=== PATIENT | male | born 1940 | race Caucasian/White ===

== ENCOUNTER 2016-08-17 10:38 | Inpatient (IN) | payer OTHER, MEDICARE ==
[~2016-08-17] VITALS: Ht 175.3 cm; Wt 91.7 kg
[2016-08-17] MEDS ORDERED: GABA300C5 PO (16:02)
[2016-08-17] MEDS ORDERED: ADVA250A INH (16:02)
[2016-08-17] MEDS ORDERED: OMEP20TA PO (16:02)
[2016-08-17] MEDS ORDERED: METO25TA3 PO ×2 (16:02)
[2016-08-18] MEDS ORDERED: ceFAZolin 2 GM PREMIX 50 ML IV SCH (10:15)
[2016-08-18] MEDS ORDERED: VANCOMYCIN 1000 MG/NS 250 ML (for <70 kg) IV SCH ×2 (10:15)
[2016-08-18] MEDS: POVIDONE IODINE 7.5% SCRUB 118 ML BOTTLE TOPICAL SCH (10:15)
[2016-08-18 10:27] VITALS: BP 153/77; PULSE 57; RESP 20; TEMP 97.2; O2SAT 96
[2016-08-18] MEDS ORDERED: INSULIN HUMAN REGULAR 1,000 UNITS/10 ML VIAL SQ PRN (10:45)
[2016-08-18] MEDS ORDERED: METOPROLOL TARTRATE 25 MG TAB PO PRN (10:45)
[2016-08-18] MEDS ORDERED: POVIDONE IODINE 5% (ANTISEPSIS KIT) 4 APPLICATIONS EACH NARE PRN (10:45)
[2016-08-18] MEDS ORDERED: LACTATED RINGER'S 1000 ML IV PRN (10:45)
[2016-08-18] MEDS ORDERED: SODIUM CHLORID 0.9% 500 ML IV PRN (10:45)
[2016-08-18] MEDS ORDERED: CHLORHEXIDINE GLUCONATE 2 % 1 PACK (2 CLOTHS) TOPICAL PRN (10:45)
[2016-08-18] MEDS ORDERED: ePHEDrine/NS 25 MG/5 ML SYR IV ONE (11:34)
[2016-08-18] MEDS ORDERED: PROPOFOL 200 MG/20 ML AMP IV ONE (11:34)
[2016-08-18] MEDS ORDERED: NEOSTIGMINE 3 MG/3 ML SYR IV ONE (11:34)
[2016-08-18] MEDS ORDERED: LACTATED RINGER'S 1000 ML INJ 1,000 ML IV ONE (11:35)
[2016-08-18] MEDS ORDERED: ONDANSETRON HCL 4 MG/2 ML VIAL IV PUSH ONE (11:35)
[2016-08-18] MEDS ORDERED: DEXAMETHASONE SOD PHOS 4 MG/ML VIAL ONE (13:39)
[2016-08-18] MEDS ORDERED: MIDAZOLAM HCL 2 MG/2 ML VIAL ONE (13:39)
[2016-08-18] MEDS ORDERED: fentaNYL CITRATE 250 MCG/5 ML AMP ONE ×2 (13:57→20:43)
[2016-08-18] MEDS ORDERED: ACETAMINOPHEN 1000 MG/100 ML VIAL IV ONE (13:57)
[2016-08-18] MEDS ORDERED: GENTAMICIN SULFATE 80 MG/2 ML VIAL ONE (14:08)
[2016-08-18] MEDS ORDERED: BUPIVACAINE/EPINEPHRINE 0.5% 50 ML VIAL ONE (15:12)
[2016-08-18] MEDS ORDERED: MISC-163 (17:05)
[2016-08-18] MEDS ORDERED: WALKER WHEELS/F1 MIS (17:05)
[2016-08-18] MEDS ORDERED: ceFAZolin INJ 1,000 MG VIAL IV ONE (17:57)
[2016-08-18] MEDS ORDERED: ONDANSETRON HCL 4 MG/2 ML VIAL IV PRN (20:00)
[2016-08-18] MEDS ORDERED: SOD PHOSPHATE/SOD BIPHOSPHATE (ADULT) ENEMA 133ML PR PRN (20:00)
[2016-08-18] MEDS ORDERED: ACETAMINOPHEN/HYDROcodone 325 MG/7.5 MG TAB PO PRN (20:00)
[2016-08-18] MEDS ORDERED: ALUMINUM/MAGNESIUM/SIMETH 30 ML CUP PO PRN (20:00)
[2016-08-18] MEDS ORDERED: BISACODYL 10 MG SUPP RECTAL PRN (20:00)
[2016-08-18] MEDS ORDERED: SODIUM CHLORIDE 0.9% FLUSH 5 ML FLUSH IVF PRN (20:00)
[2016-08-18] MEDS ORDERED: Post-op Orders (for Pharmacy) MISC XX ONE (20:00)
[2016-08-18] MEDS ORDERED: MORPHINE SULFATE 8 MG/ML INJ IV PUSH PRN (20:00)
[2016-08-18] MEDS ORDERED: NALOXONE HCL 0.4 MG/ML AMP IV PRN (20:00)
--- NOTE | 2016-08-18 20:02 | PD.OP ---
cc: Natanael Polk MD Operative Report Date of Surgery: Aug 18, 2016 Preoperative Diagnosis: Lumbar spinal stenosis L2 to 3, L3 4, L4 5. Spondylolisthesis, L4 5. Foraminal stenosis left L2-3, moderate to severe. Foraminal stenosis right L3 4, moderate to severe. Bilateral foraminal stenosis L4 5, right greater than left. Right greater than left lumbosacral radiculopathy. Postoperative Diagnosis: Same Procedure: Bilateral lumbar laminectomy L2, L3 from the left with subtotal facet resection and foraminal decompression. Bilateral lumbar laminectomy from the right L3, L4 with bilateral lateral recess decompression and subtotal facet resection right L3 4. A lateral lumbar laminectomy L4, L5 with bilateral lateral recess decompression and subtotal right second decompression. Posterior spinal fusion, lateral transverse process technique, L2 to L5. Posterior spinal segmental instrumentation, L2 to L5. Posterior lateral interbody fusion L2-3 from the left L3 4 from the right L4 5 from the right. Placement of interbody cages L2-3, L3 4, L4 5. Major bone grafting of the lumbar spine Anesthesia: Gen. Surgeon: Natanael Polk Setter Out(s): KASSY Flowers Operation and Findings: EBL: 400 ml NOTE: Rachel Flowers PA-C was present for the entire surgical procedure as my airline pilot/first officer. In my medical opinion her skill and care was necessary for proper management of this patient INDICATIONS: This patient is a 76-year-old male whose had a many year history of treatment for back hip and leg pain studies show evidence of grade 1 spondylolisthesis at L4 5 and evidence of severe foraminal stenosis associated with a scoliotic curvature to the left at the L3 4 level and the right at the L2 -3 level. The patient has had exhaustive care including epidural steroid injections multiple times, physical therapy, altered activities, nonsteroidal and temperature medications and activity modification. The patient is now debilitated or he can ambulate only a very limited distance. He presents for surgical treatment INSTRUMENTATION: Screws: Solco Cages: Staxx PROCEDURE: The patient brought to the operating room and anesthetized the supine position. The patient positioned prone on the Jose Maria frame on the Negro table. All pressure points are protected. The back was scrubbed with alcohol followed by Hibiclens followed by ChloraPrep and draped sterilely and antibiotics were given within a routine time window. A timeout was done. Lateral radiographic images used to identify the proper level for the procedure. Compared care for the preoperative studies. Skin markings were made anticipating surgical treatment. A midline incision was made. We exposed out to the tips of the transverse processes from L2 to L5. Deep retractors allowed good visualization. The lateral transverse process of both levels were decorticated anticipating later bone grafting. We started under the microscope at the L2-3 level. We did a bilateral laminectomy of L2-3 with a left-sided subtotal facet resection. A high-grade foraminal stenosis was found. Very carefully the crossing L3 nerve root was retracted. An annulotomy was performed. A total discectomy was accomplished. A combination of autogenous bone graft with demineralized bone matrix and stem cells was injected into the disc space at that level. A proper size cage was positioned and elevated to 10 mm. Additional bone grafting was placed into the disc space. The attention directed L3 4 and L4 5. A bilateral midline laminectomy of both levels was accomplished with a bilateral lateral recess decompression. There was a high-grade stenosis especially at L4 5 and moderate to high-grade at L3 4. A subtotal facet resection to the right at L3 4 and L4 5 were accomplished. At each level, the crossing nerve root was retracted carefully. Hemostasis was controlled with the bipolar cautery. The annulus was taken down in a total discectomy accomplished. At the L3 4 level we placed a cage eccentric to the right to help correct the deformity of the scoliosis. This was elevated properly. At the L4 5 level and a similar fashion. Able to help correct the deformity and reduce the spondylolisthesis. Bone graft was placed at both levels. Fluoroscopic images were used for placement of screws at L2 L3 L4 and L5. A sequence of a high-speed bur followed by a blunt awl placed through the pedicle and into the vertebral body from both sides at each level. Each screw was charged with an electric current and there were no abnormal potentials registered in either lower extremity. The screws were then attached a proper length tulio and rotated to help correct the deformity. Intraoperative x-ray showed satisfactory alignment. The wound had been irrigated multiple times. There was no comp location and no leak of cerebral spinal fluid. Bone graft placed lateral gutters from L2 to L5. The wound was closed over drain with interrupted #1 Vicryl suture. Subcutaneous tissue with 2-0 Vicryl suture and skin with running intradermal 3- 0 Vicryl followed by benzoin and Steri-Strips. The patient was awakened and taken to recovery room in satisfactory condition. FINDINGS: There was no complication that was noted. There was severe stenosis at the above levels as described. Significant instability was seen at the L4 5 level. The spondylolisthesis at that level was reduced. The deformity was corrected significantly. Overall she is a very satisfactory decompression and instrumentation. Natanael Polk MD Aug 18, 2016 20:02
[2016-08-18] MEDS ORDERED: HYDR-3580 PO (20:03)
[2016-08-18] MEDS ORDERED: DO NOT ADM ANY ANTICOAGULANT DRUGS PRN (20:30)
[2016-08-18 20:45] VITALS: BP 137/75; PULSE 57; RESP 18; TEMP 97.8; O2SAT 94
[2016-08-18] MEDS ORDERED: ZOLPIDEM TARTRATE 5 MG TAB PO PRN (21:00)
[2016-08-18] MEDS ORDERED: PILL SPLITTER OTHER PRN (21:00)
[2016-08-18] MEDS: LACTATED RINGER'S 1000 ML INJ 1,000 ML IV SCH (21:00)
[2016-08-18] MEDS: SODIUM CHLORIDE 0.9% FLUSH 5 ML FLUSH IVF SCH (21:00)
[2016-08-18] MEDS: METOPROLOL TARTRATE 25 MG TAB PO SCH (21:00)
[2016-08-18] MEDS: MORPHINE SULFATE 30 MG/30 ML PCA IV SCH (21:18)
[2016-08-18 21:30] VITALS: BP 140/75; PULSE 52; RESP 14; O2SAT 93
--- NOTE | 2016-08-18 21:39 | RADRPT ---
EXAM DATE/TIME: 08/18/2016 19:28 [facility] COMPARISON: No previous studies available for comparison. INDICATIONS : Lumbar spine fusion. MEDICAL HISTORY : Non-responsive SURGICAL HISTORY : Non-responsive ENCOUNTER: Initial ACUITY: 1 day PAIN SCORE: Non-responsive. LOCATION: Bilateral lumbar spine FINDINGS: Multiple coned down views of the lumbar spine were obtained and demonstrate that the patient status p ost multilevel fusion with bilateral pedicle screws and posterior fixation rods. Superior to be the L 1-L4 levels. There is bone graft material in the interspaces with metallic markers. CONCLUSION: Status post multilevel fusion. Ashish Hansen MD on August 18, 2016 at 21:36 Board Certified Radiologist. This report was verified electronically.
[2016-08-18] MEDS: PCA - TOTAL MG MORPHINE DELIVERED PER SHIFT SCH (22:00)
[2016-08-18 22:15] VITALS: BP 121/69; PULSE 53; RESP 19; TEMP 95.2; O2SAT 94
[2016-08-19] VITALS (7 sets, daily range): BP systolic 103–133; BP diastolic 49–64; PULSE 58–89; RESP 16–20; TEMP 96–98.8; O2SAT 95–99
[2016-08-19] MEDS: PCA - TOTAL MG MORPHINE DELIVERED PER SHIFT SCH ×3 (06:00→22:00)
--- NOTE | 2016-08-19 07:54 | PD.ORT.PN ---
Subjective Subjective Remarks Low back very sore. Laying on side helps a little. Right leg pain better but still aches in the thigh. No new radiating leg pain. Was able to get some rest off and on last night. No Cp, SOB, or abd pain. Questions about surgery. Objective Vitals Vital Signs Date Time Temp Pulse Resp B/P Pulse Ox O2 Delivery O2 Flow Rate FiO2 08/19/16 06:00 16 08/19/16 04:29 96.6 68 19 118/64 97 08/19/16 00:06 96.0 58 19 103/49 96 08/18/16 22:15 95.2 53 19 121/69 94 08/18/16 22:00 18 08/18/16 21:30 52 14 140/75 93 08/18/16 21:18 16 08/18/16 20:45 97.8 57 18 137/75 94 08/18/16 20:30 97.6 69 12 162/76 96 Nasal Cannula 3 08/18/16 10:27 97.2 57 20 153/77 96 I/O 08/18/16 08/18/16 08/18/16 08/19/16 08/19/16 08/19/16 07:00 15:00 23:00 07:00 15:00 23:00 Intake Total 1720 ml 739 ml Output Total 1050 ml 660 ml Balance 670 ml 79 ml Intake Oral 120 ml 240 ml IV Total 499 ml Other 1600 ml Output Urine Total 200 ml 300 ml Drainage Total 360 ml Estimated Blood Loss 400 ml Other 450 ml # Bowel Movements 0 0 Objective Remarks Laying in bed, NAD VSS L/S Dressing in place, mild drainage, drain in place, no erythema both calves supple, neg homans +motor at, +sens, +nvi Assessment & Plan Ortho Post Op Day #: 1 Problem List: Assessment and Plan pod#1 s/p L/S Fusion L2-L5 D/C WINDER HAND - change to po pain meds. Ok to d/c lumbar drain. PT - OOB w brace. WBAT w walker as needed. Dry dressing changes daily beginning pod#2. D/C planning, likely HHC tomorrow vs wednesday. DME written. Nicolle Blandon Aug 19, 2016 07:54
[2016-08-19 08:12] LABS: HEMATOCRIT 30.5 % (39.0-51.0); REVIEW FLAG FINAL
[2016-08-19] MEDS: SODIUM CHLORIDE 0.9% FLUSH 5 ML FLUSH IVF SCH ×2 (08:51→21:00)
[2016-08-19] MEDS: POVIDONE IODINE 7.5% SCRUB 118 ML BOTTLE TOPICAL SCH (08:55)
[2016-08-19] MEDS: PANTOPRAZOLE SOD 20 MG DELAYED RELEASE TAB PO SCH (08:58)
[2016-08-19] MEDS: METOPROLOL TARTRATE 25 MG TAB PO SCH ×2 (08:58→22:43)
[2016-08-19] MEDS: BUDESONIDE-FORMOTEROL 160/4.5 MCG INHALER INH SCH ×2 (08:58→22:42)
--- NOTE | 2016-08-19 10:08 | HHI.FF ---
Face to Face Verification Diagnosis: (1) Lumbar spinal stenosis (2) Lumbar spine instability Physical Therapy Gait training, Safety evaluation, Transfer training, bed to chair S/P Spinal Fusion: Gait training with walker, Weight bearing as tolerated, No twisting of torso, No bending Additional Instructions PT 4-5 days/wk for 2 weeks. WBAT with brace night time nanny. Walker as needed for gait training. Nursing RN Days per Week: 5 x Week(s): 1 Dressing Changes: Daily dressing change, 4x4s, Coverderm/Primapore Additional Instructions Vitals assessment, dressing assessment - dry dressing changes daily w 4x4 and coverderm I have seen patient Peter Matamoros on 08/19/16. My clinical findings support the need for the requested home health care services because: Limited ability to care for self High risk of falls I certify that my clinical findings support that this patient is homebound because: Post-op weakness Unsteady gait/balance Nicolle Blandon Aug 19, 2016 10:08
--- NOTE | 2016-08-19 10:09 | HHI.DCPOC ---
Discharge Care Plan Diagnosis: (1) Lumbar spinal stenosis (2) Lumbar spine instability Your Health Problems Are: Incision/Drains Swelling Goals to Promote Your Health * To prevent worsening of your condition and complications * To maintain your health at the optimal level Directions to Meet Your Goals Take your medications as prescribed Follow your dietary instruction Follow activity as directed Keep your appointments as scheduled Take your immunizations and boosters as scheduled If your symptoms worsen call your PCP, if no PCP go to Urgent Care Center or Emergency Room Smoking is Dangerous to Your Health. Avoid second hand smoke Call the 24-hour hour crisis hotline for domestic abuse at Nicolle Blandon Aug 19, 2016 10:09
--- NOTE | 2016-08-19 10:10 | HHI.DS ---
Discharge Summary Admission Date Aug 18, 2016 at 09:27 Discharge Date: Aug 21, 2016 Admitting Diagnosis see below Diagnosis: (1) Lumbar spinal stenosis Diagnosis: Principal (2) Lumbar spine instability Diagnosis: Principal Procedures Bilateral Laminectomy L23, L34, L45. Posterior lumbar fusion L2-L5, interbody cages, posterior segmental instrumentation, bone graft. Brief History This is a 76 year old male patient with a history of low back and bilateral leg pain, right greater than left. He sought out medical treatment and imaging studies were performed. He was found to have moderate to severe stenosis at several levels in his lumbar spine. Conservative measures were pursued but his strength and neurologic function continued to decline. Surgical treatment was eventually recommended and he elected to move forward. He presents for the above treatment. CBC/BMP: 08/19/16 0730 Significant Findings Laboratory Tests Test 08/19/16 07:30 Hemoglobin 10.4 GM/DL (13.0-17.0) Hematocrit 30.5 % (39.0-51.0) PE at Discharge Laying in bed, NAD VSS L/S Dressing in place, mild drainage, drain in place, no erythema both calves supple, neg homans +motor at, +sens, +nvi Hospital Course Surgical treatment was performed on the day of admission without complication. He recovered well in PACU and was transferred to the orthopaedic floor. Pain was controlled with IV and oral medications. He was compliant with physical therapy restrictions and his lumbar brace. After 3 days he was found to be stable and discharged home with home health care. He was instructed to continue his lumbar brace for an additional 10-12 weeks and to pursue a high fiber diet for the next 5 days. Pt Condition on Discharge: Stable Discharge Disposition: Disch w/ Home Health Serv Discharge Instructions Diet Instructions: As Tolerated, No Restrictions, High Fiber Diet Activities You Can Perform: Weight Bearing as Nisreen, See Additionl Instruction Additional Activity Instruc.: Out of bed with brace for 10 -12 weeks. New Medications: 3-in-1 Bedside Toilet (3-in-1 Bedside Toilet) 1 Mis Mis 1 EA .ROUTE DIRECTED #1 EA Walker with Front Wheels (Walker with Front Wheels) 1 Mis Mis 1 EA .ROUTE DIRECTED #1 Ref 0 EA Hydrocodone-Acetaminophen (Hydrocodone-Acetaminophen) 7.5-325 mg Tab 1 TAB PO Q4H PRN PAIN SCALE 1 TO 5 #50 TAB Continued Medications: Fluticasone-Salmeterol Inh (Advair Diskus Inh) 250-50 Mcg/Blist Aer 1 PUFF INH BID Rinse mouth after use. #1 Ref 0 INHALER Gabapentin (Gabapentin) 300 Mg Cap 300 MG PO EVERY OTHER DAY #30 Ref 0 CAP Metoprolol Tartrate (Metoprolol Tartrate) 25 Mg Tab 25 MG PO DAILY #30 Ref 0 TAB Metoprolol Tartrate (Metoprolol Tartrate) 25 Mg Tab 12.5 MG PO HS #30 Ref 0 TAB Omeprazole (Omeprazole) 20 Mg Tab 20 MG PO DAILY #30 Ref 0 TAB Nicolle Blandon Aug 19, 2016 10:10
[2016-08-19] MEDS: LACTATED RINGER'S 1000 ML INJ 1,000 ML IV SCH ×2 (13:41→22:46)
[2016-08-19] MEDS: MORPHINE SULFATE 30 MG/30 ML PCA IV SCH (19:01)
[2016-08-19] MEDS: DOCUSATE SODIUM 100 MG CAP PO SCH (22:42)
[2016-08-20 00:30] VITALS: BP 156/69; PULSE 86; RESP 20; TEMP 98.9; O2SAT 95
[2016-08-20 04:19] VITALS: BP 158/61; PULSE 84; RESP 20; TEMP 99.5; O2SAT 93
[2016-08-20] MEDS: PCA - TOTAL MG MORPHINE DELIVERED PER SHIFT SCH ×3 (05:52→21:30)
[2016-08-20 08:00] VITALS: BP 131/63; PULSE 91; RESP 18; TEMP 99.2; O2SAT 96
--- NOTE | 2016-08-20 08:03 | PD.ORT.PN ---
Subjective Subjective Remarks Doing well. Back pain. No leg pain Objective Vitals Vital Signs Date Time Temp Pulse Resp B/P Pulse Ox O2 Delivery O2 Flow Rate FiO2 08/20/16 05:52 19 08/20/16 04:19 99.5 84 20 158/61 93 08/20/16 00:30 98.9 86 20 156/69 95 08/19/16 22:53 Room Air 08/19/16 22:00 18 08/19/16 20:12 98.8 84 20 131/61 99 08/19/16 19:04 Nasal Cannula 2.00 08/19/16 19:01 16 08/19/16 18:38 Nasal Cannula 3.00 08/19/16 16:00 98.8 74 16 129/60 99 08/19/16 14:26 98 Nasal Cannula 3.00 08/19/16 13:42 16 08/19/16 12:00 96.3 64 16 133/62 99 I/O 08/19/16 08/19/16 08/19/16 08/20/16 08/20/16 08/20/16 07:00 15:00 23:00 07:00 15:00 23:00 Intake Total 739 ml 964 ml 1365 ml 1077 ml Output Total 660 ml 250 ml 650 ml 950 ml Balance 79 ml 714 ml 715 ml 127 ml Intake Oral 240 ml 500 ml 840 ml 720 ml IV Total 499 ml 464 ml 525 ml 357 ml Output Urine Total 300 ml 250 ml 650 ml 950 ml Drainage Total 360 ml # Bowel Movements 0 0 0 0 Result Diagram: 08/19/16 0730 Procedures Bilateral Laminectomy L23, L34, L45. Posterior lumbar fusion L2-L5, interbody cages, posterior segmental instrumentation, bone graft. Objective Remarks Laying in bed. Lumbar incision dry. Lower extremity: Straight-leg raise negative. Motor examination vital 5 right leg. Left leg left EHL 4+/5. Sensation almost normal Assessment & Plan Ortho Post Op Day #: 2 Problem List: (1) Lumbar spinal stenosis (2) Lumbar spine instability Assessment and Plan pod#2 s/p L/S Fusion L2-L5 PLAN: Discharge to home Brace when out of bed [facility] for pain Follow-up in 2 weeks Natanael Polk MD Aug 20, 2016 08:03
[2016-08-20] MEDS: SODIUM CHLORIDE 0.9% FLUSH 5 ML FLUSH IVF SCH ×2 (09:00→21:00)
[2016-08-20] MEDS ORDERED: GABAPENTIN 300 MG CAP PO SCH (09:00)
[2016-08-20] MEDS: DOCUSATE SODIUM 100 MG CAP PO SCH ×2 (09:04→20:27)
[2016-08-20] MEDS: PANTOPRAZOLE SOD 20 MG DELAYED RELEASE TAB PO SCH (09:05)
[2016-08-20] MEDS: METOPROLOL TARTRATE 25 MG TAB PO SCH ×2 (09:05→20:29)
[2016-08-20] MEDS: BUDESONIDE-FORMOTEROL 160/4.5 MCG INHALER INH SCH ×2 (09:06→20:32)
[2016-08-20] MEDS: ACETAMINOPHEN/HYDROcodone 325 MG/7.5 MG TAB PO PRN ×2 (09:10→18:24)
[2016-08-20] MEDS: POVIDONE IODINE 7.5% SCRUB 118 ML BOTTLE TOPICAL SCH (10:15)
[2016-08-20] MEDS: LACTATED RINGER'S 1000 ML INJ 1,000 ML IV SCH ×2 (10:30→21:30)
[2016-08-20 11:58] VITALS: BP 108/64; PULSE 69; RESP 16; TEMP 97.6; O2SAT 91
[2016-08-20 16:00] VITALS: BP 135/59; PULSE 75; RESP 18; TEMP 97.3; O2SAT 94
[2016-08-20 20:00] VITALS: BP 130/69; PULSE 82; RESP 18; TEMP 98.5; O2SAT 95
[2016-08-20] MEDS: MAGNESIUM HYDROXIDE SUSP 30 ML CUP PO SCH (20:30)
[2016-08-21] VITALS: BP 118/62; PULSE 75; RESP 18; TEMP 98.7; O2SAT 95
[2016-08-21] MEDS: PCA - TOTAL MG MORPHINE DELIVERED PER SHIFT SCH ×2 (05:46→14:00)
[2016-08-21 08:00] VITALS: BP 101/45; PULSE 75; RESP 16; TEMP 98.1; O2SAT 94
[2016-08-21] MEDS: METOPROLOL TARTRATE 25 MG TAB PO SCH (09:00)
[2016-08-21] MEDS: SODIUM CHLORIDE 0.9% FLUSH 5 ML FLUSH IVF SCH (09:00)
[2016-08-21] MEDS: ACETAMINOPHEN/HYDROcodone 325 MG/7.5 MG TAB PO PRN ×3 (09:13→16:32)
[2016-08-21] MEDS: DOCUSATE SODIUM 100 MG CAP PO SCH (09:14)
[2016-08-21] MEDS: PANTOPRAZOLE SOD 20 MG DELAYED RELEASE TAB PO SCH (09:14)
[2016-08-21] MEDS: MAGNESIUM HYDROXIDE SUSP 30 ML CUP PO SCH (09:14)
[2016-08-21] MEDS: BUDESONIDE-FORMOTEROL 160/4.5 MCG INHALER INH SCH (09:15)
[2016-08-21] MEDS: LACTATED RINGER'S 1000 ML INJ 1,000 ML IV SCH (11:30)
[2016-08-21 12:00] VITALS: BP 121/58; PULSE 77; RESP 16; TEMP 98.5; O2SAT 93
[2016-08-21 16:00] VITALS: BP 117/65; PULSE 75; RESP 18; TEMP 97.1; O2SAT 96
== END 2016-08-21 16:48 | disposition home health service (06) | DRG 460 ==
LOC: HSDI 08-18 09:27 → N06A 08-18 22:22
PROVIDERS: ADMIT Orthopaedic Surgery Orthopaedic Surgery of the Spine; ATTEND Orthopaedic Surgery Orthopaedic Surgery of the Spine
PROC: 01NB0ZZ Release Lumbar Nerve, Open Approach (ICD-10-PCS; 2016-08-18)
PROC: 0ST20ZZ Resection of Lumbar Vertebral Disc, Open Approach (ICD-10-PCS; 2016-08-18)
PROC: 0SG10AJ Fusion of 2 or more Lumbar Vertebral Joints with Interbody Fusion Device, Posterior Approach, Anterior Column, Open Approach (ICD-10-PCS; principal; 2016-08-18 14:33)
DX: M43.16 Spondylolisthesis, lumbar region (principal); M41.86 Other forms of scoliosis, lumbar region; J44.9 Chronic obstructive pulmonary disease, unspecified; I10 Essential (primary) hypertension; M48.06 Spinal stenosis, lumbar region; M54.17 Radiculopathy, lumbosacral region; M53.2X6 Spinal instabilities, lumbar region; K21.9 Gastro-esophageal reflux disease without esophagitis; Z87.891 Personal history of nicotine dependence
CPT/HCPCS: 72100; 76000; 85014; 85018; 86850; 86900; 86901; 94150; C1713; J0131; J0690; J1100; J1580; J2250; J2270; J2405; J2710; J3010; J3370; J7050; J7120